=== PATIENT | male | born 1970 | race Caucasian/White ===

== ENCOUNTER 2019-01-28 16:37 | Emergency (ER) | payer BC ==
[~2019-01-28] VITALS: Ht 180.3 cm; Wt 113.0 kg
[~2019-01-28 16:37] MED LIST: BACITRACIN OP; BENADRY2 EX; BENADRYL 50MG C50 MG PO; MOTRIN800 MG OR; NO MEDS
[2019-01-28 17:31] LABS: IMMATURE GRANULOCYTES 0.2 % (0.0-5.0); MEAN CELL VOLUME 91.1 fL CALC (80.0-100.0); MEAN CORPUSCULAR HGB 29.8 pG CALC (26.0-32.0); MEAN CORPUSCULAR HGB CONC 32.7 g/L CALC (32.0-36.0); NEUT# 5.4 thou/uL (1.82-7.42); RED BLOOD COUNT 4.06 mill/uL (4.70-6.10); RED CELL DISTRI WIDTH 11.9 % (11.5-15.5)
[2019-01-28 17:32] LABS: HEMOGLOBIN 12.1 g/dl (14.0-18.0)
[2019-01-28 17:43] LABS: ANION GAP 15 (6-22 (CALC)); BUN 15 mg/dL (9-20); BUN/CREATININE RATIO 12 (12-20 (CALC)); CARBON DIOXIDE 27 mmol/l (22-30); CHLORIDE 102 mmol/l (95-108); CREATININE 1.2 mg/dL (0.7-1.3); GFR > 60 ML/MIN (>=60 (CALC)); GFR FOR AFR.AMER. > 60 ML/MIN (>=60 (CALC)); POTASSIUM 3.6 mmol/l (3.5-5.1); SODIUM 141 mmol/l (137-146)
[2019-01-28] MEDS ORDERED: PROAIR HFA108 MCG/AC PO (18:05)
[2019-01-28] MEDS ORDERED: ZPAK PO (18:05)
[2019-01-28] MEDS ORDERED: PREDNISONE50 MG PO (18:05)
[2019-01-28 18:18] VITALS: BP 111/60
== END 2019-01-28 18:26 | disposition home or self-care (01) | DRG 203 ==
LOC: ED 16:37
PROVIDERS: Family Medicine
DX: J40 Bronchitis, not specified as acute or chronic (principal); R07.9 Chest pain, unspecified; F17.200 Nicotine dependence, unspecified, uncomplicated